=== PATIENT | female | born 1985 | race Caucasian/White ===

== ENCOUNTER 2021-05-31 14:39 | Emergency (ER) | payer MEDICAID, SELFPAY ==
[2021-05-31 14:40] VITALS: BP 116/70; PULSE 95; RESP 16; TEMP 36.8; O2SAT 96; BMI 52.9
--- NOTE | 2021-05-31 15:25 | RAD_ITS ---
STUDY: X-RAY CHEST REASON FOR EXAM: Female, 36 years old. Cough TECHNIQUE: Single AP portable view of the chest. COMPARISON: None. FINDINGS: The lungs are clear and expanded. There is no demonstrated pleural abnormality. Normal size heart. Normal mediastinum and snehal. Normal visualized pulmonary arteries. Normal visualized aortic arch and descending thoracic aorta. Normal visualized thoracic spine. Normal visualized ribs, clavicles, and shoulders. There is no demonstrated abnormality of the visualized soft tissue structures of the upper abdomen. RAD/Chest 1 View (Portable) IMPRESSION: Normal x-ray examination of the chest. Electronically Signed: Dejuan Bee MD at 15:36 EST ,
[2021-05-31] MEDS: Albuterol 2.5 MG/3 ML VIAL.NEB. INHALATION (16:18)
[2021-05-31 16:19] LABS: Absolute Lymphocyte Count 1.73 X10^3/uL (0.83-4.51); Absolute Neutrophil Count 10.9 X10^3/uL (2.0-7.7); Basophil# 0.03 X10^3/uL; Basophil% 0.2 % (0-1); Eosinophil# 0.29 X10^3/uL; Eosinophils% 2.1 % (0-5); Hematocrit 40.7 % (37-47); Hemoglobin 13.1 g/dL (12.0-15.0); Lymphocyte # 1.73 X10^3/ul (0.83-4.51); Lymphocyte % 12.7 % (19-41); Mean Corp Hgb Conc 32.2 g/dL (32-36); Mean Corpuscular Hgb 29.1 pg (27.0-32.0); Mean Corpuscular Volume 90.4 fL (81-99); Mean Platelet Vol. 9.6 fl (6.2-12.0); Monocyte# 0.55 X10^3/uL; Monocyte% 4.1 % (0-10); NRBC Flagged by Analyzer 0 % (0-5); Neutrophil % 80.3 % (47-70); Platelet Count 259 K/mm3 (150-450); RBC Distribution Width SD 45.8 fl (35.1-43.9); White Blood Count 13.6 K/mm3 (4.4-11.0)
[2021-05-31 16:20] VITALS: PULSE 88; RESP 18
[2021-05-31 16:25] VITALS: O2SAT 96
[2021-05-31 16:34] LABS: ALB/GLOB Ratio 0.5 RATIO (0.9-2.4); AST(SGOT) 9 U/L (15-37); Alanine Aminotransfer ALT/SGPT 13 U/L (13-56); Albumin, Serum 2.4 g/dL (3.2-5.0); Alkaline Phosphatase 74 U/L (45-117); Anion Gap 6 (5-15); BUN 9 mg/dL (7-18); BUN/Creat Ratio 19.2 RATIO (10-20); Calcium,Total 9.1 mg/dL (8.5-10.1); Chloride 100 mmol/L (98-107); Creatinine, Serum 0.47 mg/dL (0.55-1.02); EST Glomerular Filtration Rate 158 mL/min (>60); Est Glom Filt Rate - Afr Amer 191 mL/min (>60); Estimated Creatinine Clearance 193.18 ml/min; Glucose 169 mg/dL (74-106); Potassium 4.1 mmol/L (3.5-5.1); Protein, Total 7.4 g/dL (6.4-8.2); Sodium Level 133 mmol/L (136-145)
[2021-05-31 16:55] LABS: hCG Titer Quant., Serum 12419 mIU/mL (1-3)
--- NOTE | 2021-05-31 16:56 | ED.VIS.DYS ---
HPI History of Present Illness Chief Complaint: Shortness of Breath Informant: patient Onset/Context/Timing Onset: Weeks (3) Context: gradual Timing: Continuous Quality: Positive for Dyspnea on exertion Worsened by: Exertion Relieved by: Nothing Associated Symptoms cough, yellow sputum and green sputum; Negative for rhinorrhea, post nasal drip, ear pain, fever, sore throat, chills, sweats, clear sputum or white sputum Chest Pain: Positive for None Narrative Narrative: Patient presents with shortness of breath that has been getting worse over the past 3 weeks. Patient states she was in another emergency department in [place] and was diagnosed with at that time. Patient states she is approximately 4-1/2 months . Patient is concerned that her shortness of breath is due to preeclampsia. Patient states she has been having a cough with some yellow and slightly green sputum. Patient states her breathing is worse with any exertion. Patient denies any chest pain. Patient denies any fevers or chills. Patient denies any sore throat or rhinorrhea. Patient denies any nausea or vomiting. [facility] Medical History (Updated 05/31/21 @ 17:[address] Feliberto Alston DO) Substance abuse Allergy/AdvReac Type Severity Reaction Status Date / Time Sulfa (Sulfonamide AdvReac PT UNSURE Verified 05/31/21 14:40 Antibiotics) OF REACTION Surgical History (Updated 05/31/21 @ 16:[address] Feliberto Alston DO) History of repair of congenital cleft palate Hx of appendectomy Hx of dilation and curettage Hx of tonsillectomy Social History Smoking Status: Current every day smoker tobacco type: cigarettes ROS ROS ED Constitutional Constitutional ED: Denies chills or fever(s) Eyes Eyes: Denies blurry vision or change in vision ENT ENT ED: Denies rhinorrhea or sore throat Cardiovascular Cardiovascular: Denies chest pain or palpitations Respiratory/Chest Respiratory/Chest: Reports cough and dyspnea Gastrointestinal Gastrointestinal: Denies nausea or vomiting Genitourinary Genitourinary ED: Denies dysuria or hematuria Musculoskeletal Musculoskeletal: Denies back pain or neck pain Integumentary Denies abscess or rash Neurologic Neurologic: Denies headache(s) or weakness Allergic/Immunologic Allergic/Immunologic ED: Denies mouth swelling or urticaria EXAM Physical Exam Const Vital Signs: 05/31/21 14:40 05/31/21 16:04 05/31/21 16:06 Temperature 98.2 F Temperature Source Temporal Pulse Rate 95 Respiratory Rate 16 Respiratory Effort Normal Respiratory Depth Normal Respiratory Pattern Normal Blood Pressure 116/70 Blood Pressure Mean 85 Pulse Ox 96 Oxygen Delivery Method Room Air Room Air 05/31/21 16:20 05/31/21 16:25 Temperature Temperature Source Pulse Rate 88 Respiratory Rate 18 Respiratory Effort Respiratory Depth Respiratory Pattern Normal Blood Pressure Blood Pressure Mean Pulse Ox 96 Oxygen Delivery Method Positive well nourished, well developed, obese and unkempt General Appearance ED: unkempt, well developed and NAD Nutritional Appearance: obese HEENT Reports moist mucous membranes Neck supple and no JVD Resp normal respiratory effort and clear to auscultation bilaterally Cardio regular rate, regular rhythm and no murmurs GI normal to inspection, nondistended, normoactive bowel sounds and non-tender Palpation: soft Extremity normal to inspection General Extremety ED: Negative for edema or tenderness General Extremity: Negative for edema Neuro oriented x3, CN's II-XII intact bilaterally and no sensory deficits noted Sensorium / Orientation: alert Motor Exam: strength 5/5 throughout Psych mental status grossly normal Appearance: unkempt Skin no rashes or lesions noted MDM MDM MDM Narrative Medical decision making narrative: Patient was given albuterol aerosol here. CBC shows a mild leukocytosis of 13.6. Comprehensive metabolic profile was obtained and was essentially within normal limits. [place] [address]. Portable 1 view chest x-ray was obtained. On my interpretation, lung allen are clear. There is normal cardiac silhouette. Bony thorax is normal. There is no acute process noted. Radiologist also interpreted the x-ray and agrees. Urinalysis was obtained and was within normal limits. Patient was advised findings. Patient was instructed to use [id number] cough drops as needed. Patient was also instructed to use honey as needed to help with her cough. Patient was instructed to follow-up with a primary care physician and DIAGRAM CLERK in 5 to 7 days. Patient understood and was agreeable with the plan. All questions were answered. Lab Data Attestation: I reviewed the patient's lab results. Labs: Laboratory Results - last 24 hr 05/31/21 05/31/21 05/31/21 16:00 16:00 16:00 WBC 13.6 H RBC 4.50 Hgb 13.1 Hct 40.7 MCV 90.4 MCH 29.1 MCHC 32.2 RDW Std Deviation 45.8 H RDW Coeff of [place] 14.0 Plt Count 259 MPV 9.6 Immature Gran % (Auto) 0.600 Neut % (Auto) 80.3 H Lymph % (Auto) 12.7 L [place] % (Auto) 4.1 Eos % (Auto) 2.1 Baso % (Auto) 0.2 Absolute Neuts (auto) 10.9 H Absolute Lymphs (auto) 1.73 Nucleated RBC % 0 Sodium 133 L Potassium 4.1 Chloride 100 Carbon Dioxide 27.0 Anion Gap 6 BUN 9 Creatinine 0.47 L Estim Creat Clear Calc 193.18 Est GFR (MDRD) Af Amer 191 Est GFR (MDRD) Non-Af 158 BUN/Creatinine Ratio 19.2 Glucose 169 H Calcium 9.1 Total Bilirubin 0.20 AST 9 L ALT 13 Alkaline Phosphatase 74 Total Protein 7.4 Albumin 2.4 L Globulin 5.0 H Albumin/Globulin Ratio 0.5 L HCG, Quant 92872 H Urine Color Urine Clarity Urine pH Ur Specific [place] Urine Protein Urine Glucose (UA) Urine Ketones Urine Occult Blood Urine Nitrite Urine Bilirubin Urine Urobilinogen Ur Leukocyte Esterase Urine RBC Urine WBC Ur Squamous Epith Cells Urine Bacteria Urine Mucus 05/31/21 17:10 WBC RBC Hgb Hct MCV MCH MCHC RDW Std Deviation RDW Coeff of [place] Plt Count MPV Immature Gran % (Auto) Neut % (Auto) Lymph % (Auto) [place] % (Auto) Eos % (Auto) Baso % (Auto) Absolute Neuts (auto) Absolute Lymphs (auto) Nucleated RBC % Sodium Potassium Chloride Carbon Dioxide Anion Gap BUN Creatinine Estim Creat Clear Calc Est GFR (MDRD) Af Amer Est GFR (MDRD) Non-Af BUN/Creatinine Ratio Glucose Calcium Total Bilirubin AST ALT Alkaline Phosphatase Total Protein Albumin Globulin Albumin/Globulin Ratio HCG, Quant Urine Color Yellow Urine Clarity Clear Urine pH 6.5 Ur Specific [place] 1.015 Urine Protein Negative Urine Glucose (UA) Normal Urine Ketones Negative Urine Occult Blood Negative Urine Nitrite Negative Urine Bilirubin Negative Urine Urobilinogen Normal Ur Leukocyte Esterase Negative Urine RBC 0 SEEN Urine WBC 0-5 SEEN Ur Squamous Epith Cells 0-5 SEEN Urine Bacteria 0 SEEN Urine Mucus 0 SEEN Radiography Chest X-Ray - ED: 1 View, Read by ED Physician, Read by Radiologist and Normal Diagnostic Testing: Clinical Impression(s) from Imaging Studies Chest X-Ray 05/31/21 15:25 IMPRESSION: Normal x-ray examination of the chest. Electronically Signed: Dejuan Bee MD at 15:36 EST Reading Location ID and State: [facility] / [place] , Service support , Discharge Plan Triage Chief Complaint: Shortness of Breath ED Provider: Feliberto Alston Dx/Rx/DC Orders Clinical Impression: Viral upper respiratory infection, Instructions: ED URI, Viral, No Abx (Adult), ED Established ... Primary Care Provider: Care Physician,No Primary Referrals: Jenni Griffin MD [STAFF PHYSICIAN] - 5-7 Days Betty Kelley [NON-STAFF] - 5-7 Days Care Physician,No Primary [Primary Care Provider] - Disposition Disposition: Home, Self Care
--- NOTE | 2021-05-31 17:07 | CM.ED ---
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 She reports that she is from [place] but came to [place] to get away from it. She reports she found out she is . Patient has 2 previous miscarriages. Patient said that her drug of choice is crack but wants to do everything for this . Patient said that she is staying with a kirby for a short term so has a place to go tonight. SW discussed Misa and the homeless navigator and the [facility] Treatment navigator. SW provided both homeless navigator and treatment navigator information to the patient. SW also provided [facility] resource list and handout on [facility]. SW did not make referrals as patient is unsure where she will be as her current housing is temporary. Patient said that she is aware of the [employer] and the person who stated the person where she is staying is said that [employer] will help her. SW asked if patient had any other issues or concerns and patient just asked for a sandwich. SW remains available. RN updated Plan: AMALIA provided [facility] resources, [facility] information, Treatment Navigator contact number and Homeless Navigator contact number. Monisha JONES
[2021-05-31 17:22] LABS: Bacteria 0 SEEN /hpf (None Seen); Mucous, Urine 0 SEEN /hpf (<or=2+); Red Blood Cells-Urine 0 SEEN /hpf (0-5)
[2021-05-31 17:29] LABS: Color, Urine Yellow (Yellow); Glucose, Dipstick Normal (Normal); Ketone-Dipstick Negative (Negative); Leukocyte Esterase-Dipstick Negative /ul (Negative); Nitrite-Dipstick Negative (Negative); Occult Blood-Urine Negative /ul (Negative); Protein-Dipstick Negative (Negative); Specific Gravity, Urine 1.015 (1.002-1.030); Urine Bilirubin Dipstick Negative (Negative); Urine Clarity Clear (Clear); Urine Urobilinogen Normal (Normal); Urine pH 6.5 (5.0 - 8.0)
[2021-05-31 17:39] LABS: Squamous Epithelial Cells - UA 0-5 SEEN /hpf (5-10); White Blood Cells 0-5 SEEN /hpf (0-5)
== END 2021-05-31 18:34 | disposition home or self-care (01) ==
PROVIDERS: Emergency Provider Emergency Medicine; Visit Provider Emergency Medicine
DX: O98.519 Other viral diseases complicating pregnancy, unspecified trimester (principal); J06.9 Acute upper respiratory infection, unspecified; F17.210 Nicotine dependence, cigarettes, uncomplicated; Z3A.00 Weeks of gestation of pregnancy not specified; O99.334 Smoking (tobacco) complicating childbirth; O99.214 Obesity complicating childbirth; E66.9 Obesity, unspecified; O09.519 Supervision of elderly primigravida, unspecified trimester
CPT/HCPCS: 71045; 80053; 81001; 84702; 85025; 87426; 94640; 94760; 99285; A4216